=== PATIENT | female | born 1980 | race Caucasian/White ===

== ENCOUNTER 2016-08-25 17:28 | Emergency (ER) | payer OTHER, MEDICAID ==
[2016-08-25 18:15] VITALS: TEMP 99.8
[2016-08-25 18:18] VITALS: BP 142/94; PULSE 72; RESP 18; O2SAT 99
[2016-08-25] MEDS ORDERED: KETOROLAC TROMETHAMINE 30 MG/ML SOL IM ONE (18:25)
[2016-08-25] MEDS ORDERED: KETOROLAC TROMETHAMINE 30 MG/ML SOL ONE (18:27)
== END 2016-08-25 18:50 | disposition home or self-care (01) | DRG 313 ==
LOC: ED 17:28
DX: R07.89 Other chest pain (principal)
CPT/HCPCS: 93005; 96372; 99283; 99284; J1885

== ENCOUNTER 2016-10-13 23:20 | Emergency (ER) | payer OTHER, MEDICAID ==
[2016-10-13 23:20] VITALS: O2SAT 99
[2016-10-13] MEDS ORDERED: ONDANSETRON 4 MG ODT BU ONE (23:26)
[2016-10-13] MEDS ORDERED: ONDANSETRON 4 MG ODT ONE (23:26)
[2016-10-13 23:34] VITALS: RESP 18; TEMP 97.1
[2016-10-13] MEDS ORDERED: MORPHINE SULFATE 10 MG/ML SOL IM PRN (23:43)
[2016-10-13] MEDS ORDERED: MORPHINE SULFATE 10 MG/ML SOL ONE (23:44)
[2016-10-14] MEDS ORDERED: PROCHLORPERAZINE EDISYLATE 5 MG/ML SOL IM ONE (00:20)
[2016-10-14] MEDS ORDERED: PROCHLORPERAZINE EDISYLATE 5 MG/ML SOL ONE (00:20)
[2016-10-14 00:48] VITALS: BP 128/75; PULSE 66
== END 2016-10-14 00:42 | disposition home or self-care (01) | DRG 392 ==
LOC: ED 23:20
DX: R10.84 Generalized abdominal pain (principal); R51 Headache; Z90.49 Acquired absence of other specified parts of digestive tract; R11.2 Nausea with vomiting, unspecified
CPT/HCPCS: 99284; J0780; J2270

== ENCOUNTER 2017-06-15 19:13 | Emergency (ER) | payer OTHER, MEDICAID ==
[2017-06-15 19:30] VITALS: BP 149/92; PULSE 82; RESP 18; TEMP 98.2; O2SAT 100
[2017-06-15 19:49] LABS: APPEARANCE,URINE Clear; BILIRUBIN,URINE NEGATIVE (NEGATIVE); COLOR,URINE Yellow; GLUCOSE, URINE (UA) NEGATIVE (NEGATIVE); KETONES,URINE NEGATIVE (NEGATIVE); LEUKOCYTE ESTERASE ,URINE TRACE (NEGATIVE); NITRATE,URINE NEGATIVE (NEGATIVE); OCCULT BLOOD,URINE 3+ (NEG-TRACE); UROBILINOGEN,URINE 0.2 (0.2-1.0 EU)
[2017-06-15 19:58] LABS: RBC,URINE 15-20 (0-3AV/HPF)
[2017-06-15 20:10] LABS: BASOPHILS % (AUTO) 1 % (0-3); EOSINOPHILS % (AUTO) 4 % (0-9); HEMATOCRIT 34 % (35-47); MEAN CORPUSCULAR HGB CONC 34.6 gm/dl (32.0-36.0); NEUTROPHILS % (AUTO) 64.3 % (37-80)
[2017-06-15 20:11] LABS: MEAN CORPUSCULAR VOLUME 80 fL (81-99)
[2017-06-15 20:23] LABS: ALBUMIN 3.6 gm/dl (3.4-5.0); CALCIUM 8.6 mg/dl (8.5-10.1); POTASSIUM 3.5 mMol/L (3.5-5.1)
== END 2017-06-15 20:49 | disposition home or self-care (01) | DRG 204 ==
LOC: ED 19:13
DX: R07.81 Pleurodynia (principal); N39.0 Urinary tract infection, site not specified
CPT/HCPCS: 36415; 71101; 80053; 81001; 85025; 87088; 99282

== ENCOUNTER 2018-12-25 00:45 | Emergency (ER) | payer MEDICAID, OTHER ==
[2018-12-25 01:25] LABS: APPEARANCE,URINE Clear; BILIRUBIN,URINE NEGATIVE (NEGATIVE); COLOR,URINE Yellow; GLUCOSE, URINE (UA) NEGATIVE (NEGATIVE); KETONES,URINE NEGATIVE (NEGATIVE); LEUKOCYTE ESTERASE ,URINE NEGATIVE (NEGATIVE); NITRATE,URINE NEGATIVE (NEGATIVE); OCCULT BLOOD,URINE NEGATIVE (NEG-TRACE); UROBILINOGEN,URINE 0.2 (0.2-1.0 EU)
[2018-12-25 01:36] LABS: BASOPHILS % (AUTO) 1 % (0-3); EOSINOPHILS % (AUTO) 2 % (0-9); HEMATOCRIT 37 % (35-47); HEMOGLOBIN 12.5 gm/dl (12.0-15.5); LYMPHOCYTES % (AUTO) 34.2 % (10-50); MEAN CORPUSCULAR HEMOGLOBIN 28.1 pg (27.0-32.0); MEAN CORPUSCULAR HGB CONC 33.4 gm/dl (32.0-36.0); MEAN CORPUSCULAR VOLUME 84 fL (81-99); MONOCYTES % (AUTO) 7.2 % (0-12); NEUTROPHILS % (AUTO) 55.7 % (37-80)
[2018-12-25 01:49] LABS: BACTERIA TRACE (< 1+); CRYSTALS NEGATIVE (0-3 AVE/HPF); RBC,URINE 0-2 (0-3AV/HPF)
[2018-12-25 01:50] LABS: ALBUMIN 3.7 gm/dl (3.4-5.0); BILIRUBIN,TOTAL 0.4 mg/dl (0.2-1.0); CALCIUM 8.7 mg/dl (8.5-10.1); CARBON DIOXIDE 29.1 mEq/L (21-32); CREATININE 0.89 mg/dl (0.60-1.00); POTASSIUM 3.6 mMol/L (3.5-5.1); TOTAL PROTEIN 6.7 gm/dl (6.4-8.2)
[2018-12-25 02:31] VITALS: BP 138/89; PULSE 86; RESP 18; TEMP 97.8; O2SAT 97
== END 2018-12-25 02:26 | disposition home or self-care (01) | DRG 392 ==
LOC: ED 00:45
DX: R10.9 Unspecified abdominal pain (principal); R10.2 Pelvic and perineal pain
CPT/HCPCS: 36415; 74176; 80053; 81001; 85025; 99282; 99283